=== PATIENT | female | born 1965 | race Caucasian/White ===

== ENCOUNTER → 2022-08-10 10:12 | Outpatient (CLI) | payer BC, SELFPAY ==
[2022-08-10 11:11] LABS: Basophils # 0.1 K/mm3 (0-0.2); Basophils % 1.4 % (0.1-2.0); Eosinophils # 0.2 K/mm3 (0.0-0.4); Eosinophils % 3.6 % (0.1-12.0); Hematocrit 50.2 % (37.0-47.0); Hemoglobin 15.5 g/dL (12.2-16.2); Lymphocytes # 1.6 K/mm3 (0.7-4.5); Lymphocytes % 31.7 % (10-50); Mean Corpuscular HGB Conc 30.9 g/dL (31.8-35.4); Mean Corpuscular Hemoglobin 30.2 pg (27.0-31.2); Mean Corpuscular Volume 97.6 fl (81-99); Monocytes # 0.3 K/mm3 (0.1-1.0); Monocytes % 5.2 % (1.7-9.3); Neutrophils # 2.9 K/mm3 (1.8-7.8); Platelet Count 303 K/mm3 (142-424); Red Blood Count 5.14 M/mm3 (4.20-5.40); Red Cell Distribution Width 13.9 % (11.5-17.5)
[2022-08-10 11:38] LABS: Alanine Aminotransferase 15 U/L (12-78); Albumin Level 4.6 g/dl (3.5-5.0); Albumin/Globulin Ratio 1.8 (1.1-1.8); Alkaline Phosphatase 55 U/L (38-126); Anion Gap 12.5 mEq/L (5-15); Aspartate Amino Transferase 22 U/L (14-36); Bilirubin,Total 0.8 mg/dl (0.2-1.3); Blood Urea Nitrogen 17 mg/dl (7-17); Calcium 9.2 mg/dl (8.4-10.2); Carbon Dioxide 27 mmol/L (22.0-30.0); Chloride 101 mmol/L (98-107); Estimated Glomerular Filt Rate 74 ml/min (>60); GFR (African American) 89 ML/MIN (>60); Globulin 2.5 g/dL (1.3-3.2); Glucose 92 mg/dl (74-100); Magnesium 2.4 mg/dl (1.6-2.3); Phosphorous 2.7 mg/dl (2.5-4.5); Potassium 4.5 mmoL/L (3.5-5.1); Sodium 136 mmol/L (136-145); Total Protein,Serum 7.1 g/dl (6.3-8.2); Uric Acid 4.2 mg/dl (2.5-6.2)
[2022-08-10 11:39] LABS: Creatine Kinase 41 U/L (30-135)
[2022-08-10 11:55] LABS: Free T4 (Free Thyroxine) 0.95 ng/dl (0.78-2.19)
[2022-08-10 11:57] LABS: 25-OH Vitamin D, Total 79.9 ng/mL (30-100)
[2022-08-10 12:08] LABS: Thyroid Stimulating Hormone 3.52 uIU/mL (0.465-4.68)
[2022-08-10 12:44] LABS: Vitamin B12 677 pg/mL (239-931)
[2022-08-10 12:49] LABS: Folate > 20.00 ng/mL
[2022-08-11 08:54] LABS: Estradiol <5.0 pg/mL (.); Progesterone 0.4 ng/mL (.); Triiodothyronine (T3) Free 2.2 pg/mL (2.0-4.4)
[2022-08-11 11:20] LABS: Homocyst(e)ine 8.2 umol/L (0.0-14.5)
[2022-08-14 04:08] LABS: C-Reactive Protein, Cardiac 0.84 mg/L (0.00-3.00)
[2022-08-14 19:15] LABS: Testosterone, Total, LC/MS 20.1 ng/dL (.); Testosterone,Free 1.9 pg/mL (0.0-4.2)
== END ==
PROVIDERS: PCP Family Medicine; Visit Provider Family Medicine
DX: E78.5 Hyperlipidemia, unspecified (principal); Z78.0 Asymptomatic menopausal state
CPT/HCPCS: 36415; 80053; 82306; 82550; 82607; 82626; 82670; 82746; 83036; 83090; 83735; 84100; 84144; 84270; 84402; 84403; 84439; 84443; 84481; 84550; 85025; 86140; 86141

== ENCOUNTER → 2023-05-02 09:30 | Outpatient (CLI) | payer BC, SELFPAY ==
[2023-05-02 18:17] LABS: Influenza A, PCR Not Detected (NotDetected); Influenza B, PCR Not Detected (NotDetected)
[2023-05-02 20:43] LABS: Coronavirus 19, PCR Detected (NotDetected)
== END ==
LOC: LAB.DROPOF 05-03 09:31
PROVIDERS: PCP Family Medicine; Visit Provider Nurse Practitioner
DX: U07.1 COVID-19 (principal); R51.9 Headache, unspecified; J02.9 Acute pharyngitis, unspecified; R05.9 Cough, unspecified
CPT/HCPCS: 87636

== ENCOUNTER 2023-08-07 10:34 | Outpatient (CLI) | payer BC, SELFPAY ==
--- NOTE | 2023-08-07 10:42 | XR_ITS ---
FINAL REPORT TECHNIQUE: Chest PA & Lateral CLINICAL HISTORY: covid COMPARISON: None FINDINGS: 2 views of the chest were performed. Cervical fusion hardware is noted. The heart size is normal. The mediastinum is within normal limits. There is no acute cardiopulmonary process. There are no pleural effusions. There is no pneumothorax. The bony thorax appears intact. There is mild thoracic scoliosis convex to the right. IMPRESSION: No acute cardiopulmonary process. Reviewed, Interpreted and Dictated by Farhan Palm MD Transcribed by Marilyn Niño Authenticated and [facility]
== END 2023-08-07 23:59 ==
LOC: RAD 10:34
PROVIDERS: PCP Family Medicine; Visit Provider Family Medicine
DX: U07.1 COVID-19 (principal)
CPT/HCPCS: 71046

== ENCOUNTER 2024-09-21 10:49 | Outpatient (CLI) | payer BC, SELFPAY ==
--- NOTE | 2024-09-21 10:51 | XR_ITS ---
FINAL REPORT CLINICAL HISTORY: lt sided posterior pain, nki COMPARISON: 08/07/2023 FINDINGS: 2 views of the chest were obtained . The heart is normal in size. The mediastinum is within normal limits. The lungs are clear. There is no pneumothorax. Osseous structures are unremarkable. IMPRESSION: No acute cardiopulmonary process. Reviewed, Interpreted and Dictated by Farhan Palm MD Transcribed by Svetlana Morton Authenticated and [facility]
--- OUTSIDE RECORDS SUMMARY | 2024-09-21 10:51 | XMS_ITS | Continuity of Care Document ---
Author Organization [facility] PHYSICAL THERAPY / [facility] THERAPY [place] Address [address] [place] [address] Care Team Providers Care Regulator Tester Name Role Phone MARIKA WALSH Primary Care Provider JOSSY OSHEA Scada Technician Assessment Encounter Date Assessment Date Assessment LastModified by Organization Details LastModified Time 08/25/2024 08/25/2024 Patient was able to tolerate today's treatment relatively well. Notable improvements in both sinus pressure as well as headache symptoms following significant soft tissue mobilization into splenius capitis, SCM insertion, suboccipitals, and temporalis. Patient was able to complete today's exercises well with no significant tactile cueing for appropriate facilitation of upper trap and parascapular musculature. Reviewed lateral fencing exercise as patient has been completing exercises incorrectly at home. She is able to complete this exercise with independence today and appropriate fatigue within a 15 rep range sequence. Overall this physical therapist is able to note appropriate muscular fatigue and neuromuscular sequencing with today's given exercises. Light resistance used as to assist with facilitation and feedback with appropriate exercises. Patient continues to have most difficulty with chest high row. Plan for patient to follow-up with Dr. Corral next week for secondary injection prior to ablation, discussed with patient moving next week's appointment as to allow decreased driving to and from [place] and allow for appropriate longevity and decreased irritability following next week's injection. Plan for patient to follow-up with PT next Saturday for continued progressions of clinical rehab programming, neuromuscular control into right parascapular musculature, and appropriate endurance and facilitation of upper trap. [email or web address] Not available 08/25/2024 19:22:14 Plan of Treatment Reminders Order Date Submit Date Provider Last Modified By Organization Details Last Modified Time Details Appointments [facility] 20 2024 11:20A M GIORGI CORRAL MD Not available Not available Not available RECHECK 2024 01:00P M LISS DICKERSON PT Not available Not available Not available SINGLE PROB DAK 2024 11:20A M JOSSY OSHEA MD Not available Not available Not available RECHECK 2024 02:00P M LISS DICKERSON PT Not available Not available Not available RECHECK 2024 01:15P M GIORGI CORRAL MD Not available Not available Not available Lab None recorded . Referral None recorded . Procedures None recorded . Surgeries None recorded . Imaging None recorded . Medication Orders None recorded . Patient TargetsNo targets recorded. Patient InstructionsNo instructions recorded. Reason for Referral None Reported. Problems Name Problem SNOMED Code Status Onset Date Resolution Date Notes Provider Name and Address Organization Details Recorded Time Scapulalgia 65902536 Active 2024 LISS DICKERSON, PT, DPT [address] [place], [address] , [facility] 19:28:03 Cervical radiculopathy 11329359 Active 2024 LISS DICKERSON, PT, DPT [address] [place], [address] , [facility] 19:28:05 Abnormal posture 21408883 Active 2024 LISS DICKERSON PT, DPT [address] [place], [address] , [facility] 19:28:07 Muscular incoordination 60410554 Active 2024 LISS DICKERSON PT, DPT [address] [place], [address] , [facility] 19:28:08 Problem Notes None recorded. Procedures Surgical History Date Name Laterality Status Provider Name and Address Organization Details Recorded Time 09/02/19 PT Manual Therapy completed LISS DICKERSON, PT, DPT [address] [place], [address], [facility] 09/08/2024 21:53:03 08/26/19 25 PT/OT Neuromuscular Re-Education completed LISS DICKERSON, PT, DPT [address] [place], [address], [facility] 08/25/2024 19:19:04 08/26/19 25 PT Manual Therapy completed LISS DICKERSON, PT, DPT [address] [place], [address], [facility] 08/25/2024 19:19:00 08/20/19 25 PT/OT Neuromuscular Re-Education completed LISS DICKERSON, PT, DPT [address] [place], [address], [facility] 08/19/2024 12:17:57 08/20/19 25 PT Manual Therapy completed LISS DICKERSON, PT, DPT [address] [place], [address], [facility] 08/19/2024 12:17:57 08/13/19 25 PT/OT Neuromuscular Re-Education completed LISS DICKERSON, PT, DPT [address] [place], [address], [facility] 08/21/2024 12:32:25 08/13/19 25 PT Therapeutic Exercise completed LISS DICKERSON, PT, DPT [address] [place], [address], [facility] 08/21/2024 12:32:34 08/12/19 25 Cervical MBB 2 level - Theresa completed GIORGI CORRAL MD [address] [place], [address], [facility] 08/11/2024 14:52:52 07/28/19 25 PT/OT Neuromuscular Re-Education completed LISS DICKERSON, PT, DPT [address] [place], [address], [facility] 07/27/2024 12:17:47 07/28/19 25 PT Manual Therapy completed LISS DICKERSON, PT, DPT [address] [place], [address], [facility] 07/27/2024 12:18:12 07/24/19 25 Self Retirement Management - PT completed LISS DICKERSON, PT, DPT [address] [place], [address], [facility] 07/27/2024 09:48:20 07/24/19 25 PT/OT Neuromuscular Re-Education completed LISS DICKERSON, PT, DPT [address] [place], [address], [facility] 07/27/2024 09:51:11 07/24/19 25 PT Therapeutic Exercise completed LISS DICKERSON, PT, DPT [address] [place], [address], [facility] 07/27/2024 09:51:10 07/16/19 25 PT/OT Neuromuscular Re-Education completed LISS DICKERSON, PT, DPT [address] [place], [address], [facility] 07/24/2024 11:57:59 07/16/19 25 PT Manual Therapy completed LISS DICKERSON, PT, DPT [address] [place], [address], [facility] 07/24/2024 11:57:39 07/16/19 25 PT Therapeutic Exercise completed LISS DICKERSON, PT, DPT [address] [place], [address], [facility] 07/24/2024 11:57:49 07/08/19 25 PT/OT Neuromuscular Re-Education completed LISS DICKERSON, PT, DPT [address] [place], [address], [facility] 07/08/2024 21:10:29 07/08/19 25 PT Manual Therapy completed LISS DICKERSON, PT, DPT [address] [place], [address], [facility] 07/08/2024 21:10:24 07/08/19 25 PT Therapeutic Exercise completed LISS DICKERSON, PT, DPT [address] [place], [address], [facility] 07/08/2024 21:00:47 06/29/19 25 PT/OT Neuromuscular Re-Education completed LISS DICKERSON, PT, DPT [address] [place], [address], [facility] 07/01/2024 20:27:28 06/29/19 25 PT Manual Therapy completed LISS DICKERSON, PT, DPT [address] [place], [address], [facility] 07/01/2024 20:27:22 06/29/19 25 PT Therapeutic Exercise completed LISS DICKERSON, PT, DPT [address] [place], [address], [facility] 07/01/2024 20:27:36 06/25/19 25 PT Evaluation - Moderate Complexity completed LISS DICKERSON PT, DPT [address] [place], [address], [facility] 06/25/2024 19:23:06 06/25/19 25 Self Retirement Management - PT completed LISS DICKERSON, PT, DPT [address] [place], [address], [facility] 06/25/2024 19:26:55 06/25/19 25 PT/OT Neuromuscular Re-Education completed LISS DICKERSON, PT, DPT [address] [place], [address], [facility] 06/25/2024 19:23:45 06/25/19 25 PT Therapeutic Exercise completed LISS DICKERSON, PT, DPT [address] [place], [address], [facility] 06/25/2024 19:24:29 06/04/19 25 Trigger Point Injections - Theresa completed GIORGI CORRAL MD [address] [place], [address], [facility] 06/04/2024 13:44:29 05/20/19 24 Destruction Premalignant Lesion(s) completed Georgia De Jesus [facility] 05/20/2023 15:13:46 Imaging Results None recorded. Procedure Notes None recorded. Medical Equipment None Reported. Allergies No known drug allergies Medications Name Sig Start Date Stop Date Status Note LastModified by Organization Details LastModified Time amoxicilli n 500 mg capsule 06/04 completed Not Available Not Available Not Available prednisone 10 mg tablet 05/20 completed Not Available Not Available Not Available azithromyc in 250 mg tablet 07/14 completed Not Available Not Available Not Available liothyroni ne 25 mcg tablet active Not Available Not Available Not Available fluconazol e 200 mg tablet 05/20 completed Not Available Not Available Not Available ondansetro n HCl 4 mg tablet 06/04 completed Not Available Not Available Not Available prednisone 20 mg tablet active Not Available Not Available Not Available clonazepam 0.5 mg tablet 06/04 completed Not Available Not Available Not Available clonazepam 1 mg tablet every night for sleep active Not Available Not Available No t Available penicillin V potassium 500 mg tablet TAKE 1 TABLET BY MOUTH FOUR TIMES DAILY UNTIL GONE active Not Available Not Available No t Available tretinoin 0.05 % topical cream active Not Available Not Available Not Available liothyroni ne 5 mcg tablet active Not Available Not Available Not Available triamcinol one acetonide 0.1 % topical cream active Not Available Not Available Not Available acyclovir 800 mg tablet 06/04 completed Not Available Not Available Not Available Aleve 220 mg tablet Take 1 tablet every 12 hours by oral route as needed. active Not Available Not Available No t Available meloxicam 7.5 mg tablet 06/04 completed Not Available Not Available Not Available amoxicilli n 875 mg tablet 05/20 completed Not Available Not Available Not Available amitriptyl ine 25 mg tablet 07/14 completed Not Available Not Available Not Available temazepam 30 mg capsule TAKE 1 CAPSULE BY MOUTH EVERY DAY AT BEDTIME NEEDED FOR SLEEP active Not Available Not Available No t Available montelukas t 10 mg tablet 06/04 completed Not Available Not Available Not Available acyclovir 200 mg capsule 07/14 completed Not Available Not Available Not Available scopolamin e 1 mg over 3 days transderma l patch active Not Available Not Available Not Available testostero ne 1 % (25 mg/2.5 gram) transderma l gel packet Apply 1 packet every day by transder mal route. active Not Available Not Available No t Available bromphenir amine-pseu doephedrin e-DM 2 mg-30 mg-10 mg/5 mL oral syrup 06/04 completed Not Available Not Available Not Available cefdinir 300 mg capsule 06/04 completed Not Available Not Available Not Available fluticason e propionate 50 mcg/actuat ion nasal spray,susp ension 07/14 completed Not Available Not Available Not Available amoxicilli n 875 mg-potassi um clavulanat e 125 mg tablet active Not taking Not Available Not Available Not Available estradiol 0.025 mg/24 hr semiweekly transderma l patch 07/14 completed Not Available Not Available Not Available moxifloxac in 0.5 % eye drops 05/20 completed Not Available Not Available Not Available estradiol active Not Available Not Cha ilable Not Available progestero ne active Not Available Not Available Not Available multivitam in active Not Available Not Available Not Available Havrix (PF) 1,440 SRINIVASAN unit/mL intramuscu lar syringe 07/14 completed Not Available Not Available Not Available bimatopros t 0.03 % drops with applicator , eyelash base APPLY 1 APPLICAT ION DIRECTED AT BEDTIME active Not Available Not Available No t Available Stahist AD 25 mg-60 mg tablet TAKE 1 TABLET BY MOUTH NEEDED EVERY 8 HOURS FOR 7 DAYS active Not Available Not Available No t Available mirabegron ER 50 mg tablet,ext ended release 24 hr active Not Available Not Available Not Available PreviDent 5000 Booster Plus 1.1 % dental paste 06/04 completed Not Available Not Available Not Available Shingrix (PF) 50 mcg/0.5 mL intramuscu lar suspension , kit 07/14 completed Not Available Not Available Not Available Afluria Qd 2019-20 (36 mos up)(PF)60 mcg (15 mcg x4)/0.5 mL IM syringe 07/14 completed Not Available Not Available Not Available Paxlovid 300 mg (150 mg x 2)-100 mg tablets in a dose pack TAKE 3 TABLETS BY MOUTH 12 HOURS APART FOR 5 DAYS 06/04 completed Not Available Not Available Not Available FreeStAccertify Shilpi 3 Sensor device APPLY AND USE DIRECTED 06/04 completed Not Available Not Available Not Available Vitals None Recorded Social History Question Answer Notes LastModified by [employer] ion Details LastModified Time Tobacco Smoking Status Former Smoker quit 15 yrs ago [place] LizaADILIA ward [facility] 05/20/2023 15:07:15 What Was The Date Of Your Most Recent Tobacco Screening? 07/23/2024 [email or web address] Information not available 07/23/2024 Sex: Female Functional Status Question Answer Note LastModified by Organizat ion Details LastModified Time What is your level of alcohol consumption? Occasional Information not available 05/20/2023 Mental Status None recorded. Family History Nothing Reported. Medical History Condition Response Coronary Artery Disease N Gout N Kidney Stones N Blood Transfusion N Hernia N Emphysema N Head Trauma/Injury N Colon/Rectal Disorders N Sexually Transmitted Disease N Glaucoma N COPD N Lung Disease N Depression N Pneumonia N Pacemaker N Measles N Attempted Suicide N Varicose Veins N Anxiety Disorder N Muscle, Joint, or Bone Problems N Hearing Loss N Arthritis N Serious Illness or Injuries N Blood Clot N Cancer N Stroke N Leg or Foot Ulcers N Radiation Therapy N Blood Thinners N High Cholesterol N Neurologic Disorder N Liver Disease N Organ Transplant N Rheumatoid Arthritis N Fibromyalgia N Headaches Y Endocrine Disorder N Kidney Disease N Allergies/Hayfever Y Heart Problems N Carpel Tunnel N Skin Problems N Anemia N Meningitis N Heart Attack ([place]) N Ulcers N Diabetes N Rheumatic Fever N Bleeding Disorder N Seizures/Epilepsy N Tuberculosis N AIDS/HIV N Asthma N Peripheral Vascular Disease N Epilepsy/Seizures N Basal Cell Carcinoma Y Reflux/GERD N Sleep Apnea N Thyroid Disorder N Hepatitis N Heart Disease N Neuropathy N Pulmonary Embolism N Hypertension N Osteoporosis N Gynecological HistoryNo gynecological history recorded. Obstetrics History GPAL:G 0 P 0 0 0 0 Past Encounters Encounter ID Performer Location Encounter Start Date Encounter Closed Date Diagnosis/Indication Diagnosis SNOMED-CT Code Diagnosis ICD10 Code Diagnosis Note [id number] LISS DICKERSON, PT, DPT PHYSICAL THERAPY / [facility]APY [facility] [address] [place] [address] 07/27/2024 10:53:22 07/30/2024 08:54:17 Cervical radiculopathy 35373148 M54.12 Abnormal posture 0800914 2 R29.3 Scapulalgia 38917888 M25 .511 Muscular incoordination 23097109 R27.8 [id number] GIORGI CORRAL MD [facility] [address] [facility], [address] [place] [address] 08/11/2024 14:14:42 08/11/2024 16:20:45 Cervical spondylosis 394927928 M47.812 [id number] LISS DICKERSON, PT, DPT PHYSICAL THERAPY / HAND THERAPY [facility] [address] [place] [address] 08/12/2024 13:52:39 08/22/2024 04:31:33 Cervical radiculopathy 69218875 M54.12 Abnormal posture 6743886 2 R29.3 Scapulalgia 17189076 M25 .511 Muscular incoordination 16337589 R27.8 [id number] LISS DICKERSON PT, DPT PHYSICAL THERAPY / HAND THERAPY [facility] [address] [place] [address] 08/19/2024 11:56:29 08/29/2024 04:04:13 Cervical radiculopathy 54677801 M54.12 Abnormal posture 2207445 2 R29.3 Scapulalgia 99659023 M25 .511 Muscular incoordination 10013546 R27.8 [id number] LISS DICKERSON PT, DPT PHYSICAL THERAPY / HAND THERAPY [place] [address] [place] [address] 08/25/2024 13:57:14 08/26/2024 04:27:09 Cervical radiculopathy 57491048 M54.12 Abnormal posture 7839526 2 R29.3 Scapulalgia 13460071 M25 .511 Muscular incoordination 22844848 R27.8 Health Concerns Section Related Observation LastModified by Organization Detai ls LastModified Time None Recorded Concern Status LastModified by Organization Details LastModified Time None Recorded Payers Encounter Date Sequence Insurance Name Policy Number Policy Jung Covered Member ID Jung Member ID Guarantor Name 08/25/2024 1 [place] [id number] Bentley Phipps [id number] Valeri Richsuhas Notes Date Note Type Note Provider Name and Address Organization Details Recorded Time 08/25/2024 text/html Time in: 2:05 PMTime out: 3:00 PM Patient reports last night was the first night in a while in which she is woken with headaches severe enough to take Aleve. She felt in the last few weeks following injection she has had relatively reduced symptoms and has noted overall improvement in intensity of symptoms as well as frequency of more severe headache and cervical symptoms. Patient reports she could attribute more significant neck pain to reading for approximately 2 hours last evening with propping head up in bed. Patient has had good success with updated exercises with mild fatigue and feeling of good muscular activation through upper trap and parascapular musculature with this set of exercises. LISS DICKERSON, PT, DPT [address] [place], [address], [facility] 08/25/2024 19:22:42 OBGyn Episode No OBEpisode recorded.
--- OUTSIDE RECORDS SUMMARY | 2024-09-21 10:51 | XMS_ITS | Continuity of Care Document ---
Author Organization [facility] Address [address] [place] [address] Care Team Providers Care Consumer Experience Consultant Name Role Phone NICO MARIKA Primary Care Provider JOSSY OSHEA University Lecturer Assessment Encounter Date Assessment Date Assessment LastModified by Organization Details LastModified Time 08/12/2024 08/12/2024 Continued length y discussion regarding appropriate plan of care for patient with patient understanding of phases of physical therapy with importance of restoring neuromuscular control into posture and about the left scapula prior to progressing with resistance and strict strengthening activities. Progressive strength will be achieved with improved recruitment of parascapular musculature but importance is for patient to have appropriate proprioceptive awareness of left scapula. Discussed with patient option for Neuralign NMES device for more appropriate and facilitated strengthening activities secondary to patient's limitations of lengthy travel to attend physical therapy sessions and chronic compensatory strategies. Revised patient's HEP, plan for PT to discuss with Dr. Corral Neuralign orders for continued intervention, plan for patient to follow-up with PT next week for continued neuromuscular facilitation for scapular kinematics and more appropriate recruitment of upper trap with parascapular musculature. Not available 08/21/2024 12:38:47 Plan of Treatment Reminders Order Date Submit Date Provider Last Modified By Organization Details Last Modified Time Details Appointments [facility] 20 2024 11:20A M GIORGI CORRAL MD Not available Not available Not available RECHECK 2024 01:00P Sheree DICKERSON PT Not available Not available Not available SINGLE PROB DAK 2024 11:20A Sheree OSHEA MD Not available Not available Not [...] and Address Organization Details Recorded Time Scapulalgia 65823902 Active 2024 LISS DICKERSON, PT, DPT [address] [place], [address] , [facility] 19:28:03 Cervical radiculopathy 35693878 Active 2024 LISS DICKERSON, PT, DPT [address] [place], [address] , [facility] 19:28:05 Abnormal posture 61308289 Active 2024 LISS DICKERSON, PT, DPT [address] [place], [address] , [facility] 19:28:07 Muscular incoordination 84244521 Active 2024 LISS DICKERSON, PT, DPT [address] [place], [address] , [facility] 19:28:08 Problem Notes None recorded. Procedures Surgical History Date Name Laterality Status Provider Name and Address Organization Details Recorded Time 09/02/19 25 PT Manual Therapy completed LISS DICKERSON, PT, DPT [address] [place], [address], [facility] 09/08/2024 21:53:03 08/26/19 25 PT/OT Neuromuscular Re-Education completed LISS DICKERSON, PT, DPT [address] [place], [address], [facility] 08/25/2024 19:19:04 08/26/19 25 PT Manual Therapy completed LISS DICKERSON, PT, DPT [address] [place], [address], [facility] 08/25/2024 19:19:00 08/20/19 25 PT/OT Neuromuscular Re-Education completed LISS DICKERSON, PT, DPT [address] [place], [address], [facility] 08/19/2024 12:17:57 08/20/19 25 PT Manual Therapy completed LISS DICKERSON, PT, DPT [address] [place], [address], [facility] 08/19/2024 12:17:57 08/13/19 25 PT/OT Neuromuscular Re-Education completed LISS DICKERSON, PT, DPT [address] [place], [address], [facility] 08/21/2024 12:32:25 08/13/19 25 PT Therapeutic Exercise completed LISS DICKERSON, PT, DPT [address] [place], [address], [facility] 08/21/2024 12:32:34 08/12/19 25 Cervical MBB 2 level - Theresa completed GIORGI CORRAL MD [address] [place], [address], [facility] 08/11/2024 14:52:52 07/28/19 25 PT/OT Neuromuscular Re-Education completed LISS DICKERSON, PT, DPT [address] [place], [address], [facility] 07/27/2024 12:17:47 07/28/19 25 PT Manual Therapy completed LISS DICKERSON, PT, DPT [address] [place], [address], [facility] 07/27/2024 12:18:12 07/24/19 25 Self Jail Management - PT completed LISS DICKERSON, PT, DPT [address] [place], [address], [facility] 07/27/2024 09:48:20 07/24/19 25 PT/OT Neuromuscular Re-Education completed LISS DICKERSON, PT, DPT [address] [place], [address], [facility] 07/27/2024 09:51:11 07/24/19 25 PT Therapeutic Exercise completed LISS DICKERSON, PT, DPT [address] [place], [address], [facility] 07/27/2024 09:51:10 07/16/19 25 PT/OT Neuromuscular Re-Education completed LISS DICKERSON, PT, DPT [address] [place], [address], [facility] 07/24/2024 11:57:59 07/16/19 25 PT Manual Therapy completed LISS DICKERSON, PT, DPT [address] [place], [address], [facility] 07/24/2024 11:57:39 07/16/19 25 PT Therapeutic Exercise completed LISS DICKERSON, PT, DPT [address] [place], [address], [facility] 07/24/2024 11:57:49 07/08/19 25 PT/OT Neuromuscular Re-Education completed LISS DICKERSON, PT, DPT [address] [place], [address], [facility] 07/08/2024 21:10:29 07/08/19 25 PT Manual Therapy completed LISS DICKERSON, PT, DPT [address] [place], [address], [facility] 07/08/2024 21:10:24 07/08/19 25 PT Therapeutic Exercise completed LISS DICKERSON, PT, DPT [address] [place], [address], [facility] 07/08/2024 21:00:47 06/29/19 25 PT/OT Neuromuscular Re-Education completed LISS DICKERSON, PT, DPT [address] [place], [address], [facility] 07/01/2024 20:27:28 06/29/19 25 PT Manual Therapy completed LISS DICKERSON, PT, DPT [address] [place], [address], [facility] 07/01/2024 20:27:22 06/29/19 25 PT Therapeutic Exercise completed LISS DICKERSON, PT, DPT [address] [place], [address], [facility] 07/01/2024 20:27:36 06/25/19 25 PT Evaluation - Moderate Complexity completed LISS DICKERSON PT, DPT [address] [place], [address], [facility] 06/25/2024 19:23:06 06/25/19 25 Self Jail Management - PT completed LISS DICKERSON, PT, DPT [address] [place], [address], [facility] 06/25/2024 19:26:55 06/25/19 25 PT/OT Neuromuscular Re-Education completed LISS DICKERSON, PT, DPT [address] [place], [address], [facility] 06/25/2024 19:23:45 06/25/19 25 PT Therapeutic Exercise completed LISS DICKERSON PT, DPT [address] [place], [address], [facility] 06/25/2024 19:24:29 06/04/19 25 Trigger Point Injections - Theresa completed GIORGI CORRAL MD [address] [place], [address], [facility] 06/04/2024 13:44:29 05/20/19 24 Destruction Premalignant Lesion(s) completed Georgia De Jesus [facility] 05/20/2023 15:13:46 Imaging Results None recorded. Procedure [...] Available Not Available Not Available Afluria Qd 2018- (36 mos up)(PF)60 mcg (15 mcg x4)/0.5 mL IM syringe 07/14 completed Not Available Not Available Not Available Paxlovid 300 mg (150 mg x 2)-100 mg tablets in a dose pack TAKE 3 TABLETS BY MOUTH 12 HOURS APART FOR 5 DAYS 06/04 completed Not Available Not Available Not Available [employer] Shilpi 3 Sensor device APPLY AND USE DIRECTED 06/04 completed Not Available Not Available Not Available Vitals None Recorded Social History Question Answer Notes LastModified by Organizat ion Details LastModified Time Tobacco Smoking Status Former Smoker quit 15 yrs ago Georgia De Jesus anahy [facility] 05/20/2023 15:07:15 What Was The Date Of Your Most Recent Tobacco Screening? 07/23/2024 elie Information not available 07/23/2024 Sex: Female Functional Status Question Answer Note LastModified by Organizat ion Details LastModified Time What is your level of alcohol consumption? Occasional [email or web address] Information not available 05/20/2023 Mental Status None recorded. Family History Nothing Reported. Medical History Condition Response Coronary Artery Disease N Gout N Kidney Stones N Blood Transfusion N Hernia N Emphysema N Head Trauma/Injury N Colon/Rectal Disorders N Sexually Transmitted Disease N Lung Disease N Depression N COPD N Glaucoma N Pneumonia N Pacemaker N Measles N [...] N Anemia N Meningitis N Heart Attack ([place]) N Ulcers N Diabetes N Rheumatic Fever [...] SNOMED-CT Code Diagnosis ICD10 Code Diagnosis Note [id number] LISS DICKERSON, PT, DPT [facility] [address] [place] [address] 07/15/2024 12:50:03 07/25/2024 06:38:00 Cervical radiculopathy 11471175 M54.12 Abnormal posture 3590672 2 R29.3 Scapulalgia 51892916 M25 .511 Muscular incoordination 40809742 R27.8 [id number] LISS DICKERSON, PT, DPT [facility] [address] [place] [address] 07/23/2024 12:49:06 07/28/2024 04:10:24 Cervical radiculopathy 13236204 M54.12 Abnormal posture 9843415 2 R29.3 Scapulalgia 49211408 M25 .511 Muscular incoordination 44350912 R27.8 [id number] GIORGI CORRAL MD [facility] [address] [place] [address] 07/23/2024 14:02:43 07/24/2024 10:02:32 Degeneration of cervical intervertebral disc 87624574 M50.30 Cervical spondylosis 387 711909 M47.812 Scapulalgia 08948027 M25 .519 Myofascial pain syndrome of neck 909005969 M54.2 [id number] LISS DICKERSON, PT, DPT PHYSICAL THERAPY / HAND THERAPY [facility] [address] [place] [address] 07/27/2024 10:53:22 07/30/2024 08:54:17 Cervical radiculopathy 99158409 M54.12 Abnormal posture 5845276 2 R29.3 Scapulalgia 36249712 M25 .511 Muscular incoordination 54820739 R27.8 [id number] GIORGI CORRAL MD [facility] PROFESSIO NAL CHARGES [address] [facility], [address] [place] [address] 08/11/2024 14:14:42 08/11/2024 16:20:45 Cervical spondylosis 092523984 M47.812 [id number] LISS DICKERSON, PT, DPT PHYSICAL THERAPY / HAND THERAPY [facility] [address] [place] [address] 08/12/2024 13:52:39 08/22/2024 04:31:33 Cervical radiculopathy 17323344 M54.12 Abnormal posture 0313904 2 R29.3 Scapulalgia 78891460 M25 .511 Muscular incoordination 63449830 R27.8 Health Concerns Section Related Observation LastModified by Organization Detai ls LastModified Time None Recorded Concern Status LastModified by Organization Details LastModified Time None Recorded Payers Encounter Date Sequence Insurance Name Policy Number Policy Jung Covered Member ID Jung Member ID Guarantor Name 08/12/2024 1 [place] [id number] Bentley Phipps [id number] Valeri Phipps Notes Date Note Type Note Provider Name and Address Organization Details Recorded Time 08/12/2024 text/html Time in: 2:03pmT yamileth out: 3:08pm Patient reports significant improvement in cervical symptoms following medial branch nerve blocks from C3-C5 by Dr. Corral 1 day following. Patient reports that she has not had headaches since procedure and she did a significant amount of driving in the last 2 days which is typically symptomatic for patient. Patient is inquiring about importance of physical therapy and next steps as patient is pain-free at this stage and what this means for plan of care. LISS DICKERSON, PT, DPT [address] [place], [address], [facility] 08/21/2024 12:38:56 08/19/2024 text/html Time in: 12:09pmTime out: 1:10pm Patient reports mild soreness into most additional location of Neuralign electrode following last sessions exercise and utilization of NMES unit. Patient reports return of headaches approximately 48 hours following previous cervical injections. She reports no headaches have yet to be symptomatic enough for patient to require medication. She reports no headaches with driving to today's appointment. LISS DICKERSON, PT, DPT [address] [place], [address], [facility] 08/28/2024 10:46:20 OBGyn Episode No OBEpisode recorded.
--- OUTSIDE RECORDS SUMMARY | 2024-09-21 10:51 | XMS_ITS | Continuity of Care Document ---
Author Organization [facility], PAIN MEDICINE Address [address] [place] [address] Care Team Providers Care Puppet Master Name Role Phone MARIKA WALSH Primary Care Provider JOSSY OSHEA Pattern Storage Clerk Assessment Encounter Date Assessment Date Assessment LastModified by Organization Details LastModified Time 07/23/2024 07/23/2024 This is a 58-year-old female seen today for follow-up evaluation of cervical spine pain with occipital headaches as well as scapular dyskinesis. She continues to work with PT on proper scapular function which has included dry needle therapy. She has noticed some improvement with this therapy. PMH: PSHx: 1. MRI cervical spine 04/15/2024 demonstrates previous C6-7 ACDF. L>R C7-T1 foraminal narrowing. C5-6 retrolisthesis. 2. X-ray cervical spine 04/15/2024 demonstrates previous C6-7 ACDF with slight C3-4 and C4-5 anterolisthesis with no instability apparent 3. CT cervical spine 04/15/2024 demonstrates solid osseous fusion. The above image findings were discussed with the patient. Previous injection therapy has included: BLANCA, RFA prior to surgery Patient has participated in a physician directed home exercise program for at least 6 weeks in the last 6 months Presentation is consistent with scapular dyskinesis and cervical spondylosis. I recommend: 1. Continue PT 2. Right C3-5 MBB with progression to RFA if diagnostic I had an in-depth discussion with the patient regarding the risks of the procedure including bleeding, infection, damage to surrounding structures, paralysis and even . We discussed the potential adverse effects of corticosteroid injection including flushing of the face, lipodystrophy, skin discoloration, elevated blood glucose, increased blood pressure. Risks of frequent steroid administration include weight gain, hormonal changes, mood changes, osteoporosis. External records were reviewed and discussed as above, including imaging, clinical notes, and relevant labs. [email or web address] Not available 07/23/2024 14:44:21 Plan of Treatment Reminders Order Date Submit Date Provider Last Modified By Organization Details Last Modified Time Details Appointments [facility]- 20 2024 11:20A Sheree CORRAL MD Not available Not available Not available RECHECK 2024 01:00P M LISS DICKERSON PT Not available Not available Not available SINGLE PROB DAK 2024 11:20A M JOSSY OSHEA MD Not available Not available Not available RECHECK 2024 02:00P Sheree DICKERSON PT Not available Not available Not available RECHECK 2024 01:15P Sheree CORRAL MD Not available Not available Not available Lab None recorded. Referral None recorded. Procedures medial branch block, cervical (PROC) 2024 025 [email or web address] [facility] Professional Charges, [address] [facility], [address], [address], 08/10/2024 15:50:38 Surgeries None recorded. Imaging None recorded. Medication Orders None recorded. Patient TargetsNo targets recorded. Patient InstructionsNo instructions recorded. Reason for Referral None Reported. Problems Name Problem SNOMED Code Status Onset Date Resolution Date Notes Provider Name and Address Organization Details Recorded Time Scapulalgia 21052159 Active 2024 LISS DICKERSON, PT, DPT [address] [place] [address], [phone] , [facility] 19:28:03 Cervical radiculopathy 30589745 Active 2024 LISS DICKERSON PT, DPT [address] [place] [address], [address] , [facility] 19:28:05 Abnormal posture 86588097 Active 2024 LISS DICKERSON PT, DPT [address] [place] [address], [address] , [facility] 19:28:07 Muscular incoordination 09160922 Active 2024 LISS DICKERSON, PT, DPT [address] [place], [address] , [facility] 19:28:08 Problem Notes None recorded. Procedures Surgical History Date Name Laterality Status Provider Name and Address Organization Details Recorded Time 09/02/19 25 PT Manual Therapy completed LISS DICKERSON, PT, DPT [address] [place], [address], [facility] 09/08/2024 21:53:03 08/26/19 25 PT/OT Neuromuscular Re-Education completed LISS DICKERSON PT, DPT [address] [place], [address], [facility] 08/25/2024 19:19:04 08/26/19 25 PT Manual Therapy completed LISS DICKERSON, PT, DPT [address] [place], [address], [facility] 08/25/2024 19:19:00 08/20/19 25 PT/OT Neuromuscular Re-Education completed ILSS DICKERSON, PT, DPT [address] [place], [address], [facility] 08/19/2024 12:17:57 08/20/19 25 PT Manual Therapy completed LISS DICKERSON, PT, DPT [address] [place], [address], [facility] 08/19/2024 12:17:57 08/13/19 25 PT/OT Neuromuscular Re-Education completed LISS DICKERSON, PT, DPT [address] [place], [address], [facility] 08/21/2024 12:32:25 08/13/19 25 PT Therapeutic Exercise completed LISS DICKERSON, PT, DPT [address] [place], [address], [facility] 08/21/2024 12:32:34 08/12/19 25 Cervical MBB 2 level - Theresa completed GIORGI CORRAL MD [address] [place], [address], [facility] 08/11/2024 14:52:52 07/28/19 25 PT/OT Neuromuscular Re-Education completed LISS DICKERSON, PT, DPT [address] [place], [address], [facility] 07/27/2024 12:17:47 07/28/19 25 PT Manual Therapy completed LISS DICKERSON, PT, DPT [address] [place], [address], [facility] 07/27/2024 12:18:12 07/24/19 25 Self Retirement Management - PT completed LISS DICKERSON, PT, DPT [address] [place], [address], [facility] 07/27/2024 09:48:20 07/24/19 25 PT/OT Neuromuscular Re-Education completed LISS DICKERSON, PT, DPT [address] [place], [address], [facility] 07/27/2024 09:51:11 07/24/19 25 PT Therapeutic Exercise completed LISS DICKERSON PT, DPT [address] [place], [address], [facility] 07/27/2024 09:51:10 07/16/19 25 PT/OT Neuromuscular Re-Education completed LISS DICKERSON, PT, DPT [address] [place], [address], [facility] 07/24/2024 11:57:59 07/16/19 25 PT Manual Therapy completed LISS DICKERSON, PT, DPT [address] [place], [address], [facility] 07/24/2024 11:57:39 07/16/19 25 PT Therapeutic Exercise completed LISS DICKERSON, PT, DPT [address] [place], [address], [facility] 07/24/2024 11:57:49 07/08/19 25 PT/OT Neuromuscular Re-Education completed LISS DICKERSON, PT, DPT [address] [place], [address], [facility] 07/08/2024 21:10:29 07/08/19 25 PT Manual Therapy completed LISS DICKERSON, PT, DPT [address] [place], [address], [facility] 07/08/2024 21:10:24 07/08/19 25 PT Therapeutic Exercise completed LISS DICKERSON, PT, DPT [address] [place], [address], [facility] 07/08/2024 21:00:47 06/29/19 25 PT/OT Neuromuscular Re-Education completed LISS DICKERSON, PT, DPT [address] [place], [address], [facility] 07/01/2024 20:27:28 06/29/19 25 PT Manual Therapy completed LISS DICKERSON, PT, DPT [address] [place], [address], [facility] 07/01/2024 20:27:22 06/29/19 25 PT Therapeutic Exercise completed LISS DICKERSON, PT, DPT [address] [place], [address], [facility] 07/01/2024 20:27:36 06/25/19 25 PT Evaluation - Moderate Complexity completed LISS DICKERSON, PT, DPT [address] [place], [address], [facility] 06/25/2024 19:23:06 06/25/19 25 Self Retirement Management - PT completed LISS DICKERSON, PT, DPT [address] [place], [address], [facility] 06/25/2024 19:26:55 06/25/19 25 PT/OT Neuromuscular Re-Education completed LISS DICKERSON, PT, DPT [address] [place], [address], [facility] 06/25/2024 19:23:45 06/25/19 25 PT Therapeutic Exercise completed LISS DICKERSON, PT, DPT [address] [place], [address], [facility] 06/25/2024 19:24:29 06/04/19 25 Trigger Point Injections - Theresa completed GIORGI CORRAL MD [address] [place], [address], [facility] 06/04/2024 13:44:29 05/20/19 24 Destruction Premalignant Lesion(s) completed [facility] 05/20/2023 15:13:46 Imaging Results None [...] completed Not Available Not Available Not Available [employer] Shilpi 3 Sensor device APPLY AND USE DIRECTED 06/04 completed Not Available Not Available Not Available Vitals Date Recorded Body height Body mass index (BMI) Body weight Body temperature Oxygen saturation Oxygen saturation in Arterial blood by Pulse oximetry Heart rate Systolic blood pressure Diastolic blood pressure Provider Name and Address Organization Details Last Updated DateTime 5 167.64 cm 21.5 kg/m2 04939.7 9 g 97.2 [degF] 97 % 97 % 63 /min 126 mm[Hg] 84 mm[Hg] [facility] 5 14:28:53 Social History Question Answer Notes LastModified by [employer] Details LastModified Time Tobacco Smoking Status Former Smoker quit 15 yrs ago [facility]2023 15:07:15 What Was The Date Of Your Most Recent Tobacco Screening? 07/23/2024 elie Information not available 07/23/2024 Sex: Female Functional Status Question Answer Note LastModified by [employer] Details LastModified Time What is your level of alcohol consumption? Occasional [email or web address] Information not available 05/20/2023 Mental Status None recorded. Family History Nothing Reported. Medical History Condition Response Coronary Artery Disease N Gout N Kidney Stones N Blood Transfusion N Head Trauma/Injury N Hernia N Emphysema N Colon/Rectal Disorders N Sexually Transmitted Disease N Glaucoma N Lung Disease N Depression N COPD N Pneumonia N Pacemaker N Measles N Varicose Veins N Attempted Suicide N Anxiety Disorder N Muscle, Joint, or Bone Problems N Arthritis N Hearing Loss N Serious Illness or Injuries N Blood Clot N Cancer N Stroke N Leg or Foot Ulcers N Radiation Therapy N Blood Thinners N High Cholesterol N Neurologic Disorder N Liver Disease N Organ Transplant N Rheumatoid Arthritis N Headaches Y Fibromyalgia N Endocrine Disorder N Kidney Disease N Allergies/Hayfever Y Heart Problems N Carpel Tunnel N Skin Problems N Anemia N Meningitis N Heart Attack ([place]) N Ulcers N Diabetes N Rheumatic Fever N Bleeding Disorder N Seizures/Epilepsy N Tuberculosis N AIDS/HIV N Asthma N Epilepsy/Seizures N Peripheral Vascular Disease N Basal Cell Carcinoma Y Reflux/GERD N Sleep Apnea N Thyroid Disorder N Hepatitis N Neuropathy N Heart Disease N Pulmonary Embolism N Hypertension N Osteoporosis N Gynecological HistoryNo gynecological history recorded. Obstetrics History GPAL:G 0 P 0 0 0 0 Past Encounters Encounter ID Performer Location Encounter Start Date Encounter Closed Date Diagnosis/Indication Diagnosis SNOMED-CT Code Diagnosis ICD10 Code Diagnosis Note [id number] LISS DICKERSON, PT, DPT PHYSICAL THERAPY / HAND THERAPY [facility] [place] [address] 06/25/2024 10:46:30 06/30/2024 05:07:21 Scapulalgia 82239526 M25.511 Cervical radiculopathy 31677930 M54.12 Abnormal posture 6765014 2 R29.3 Muscular incoordination 61098329 R27.8 [id number] LISS DICKERSON PT, [facility] [address] [place] [address] 06/29/2024 12:51:54 07/02/2024 04:32:05 Cervical radiculopathy 19068936 M54.12 Scapulalgia 77411185 M25 .511 Abnormal posture 4996122 2 R29.3 Muscular incoordination 77642685 R27.8 [id number] LISS DICKERSON, PT, DPT PHYSICAL THERAPY / HAND THERAPY [facility] [address] [place] [address] 07/08/2024 12:54:11 07/09/2024 06:23:04 Cervical radiculopathy 63525421 M54.12 Abnormal posture 6828027 2 R29.3 Scapulalgia 09707386 M25 .511 Muscular incoordination 87776777 R27.8 [id number] LISS DICKERSON, PT, DPT PHYSICAL THERAPY / HAND THERAPY [facility] [address] [place] [address] 07/15/2024 12:50:03 07/25/2024 06:38:00 Cervical radiculopathy 32438024 M54.12 Abnormal posture 8037286 2 R29.3 Scapulalgia 99875572 M25 .511 Muscular incoordination 95474181 R27.8 [id number] LISS DICKERSON, PT, DPT PHYSICAL THERAPY / HAND THERAPY [facility] [address] [place] [address] 07/23/2024 12:49:06 07/28/2024 04:10:24 Cervical radiculopathy 82861638 M54.12 Abnormal posture 4447370 2 R29.3 Scapulalgia 50141447 M25 .511 Muscular incoordination 71121767 R27.8 [id number] GIORGI CORRAL MD PAIN MEDICINE [address] [place] [address] 07/23/2024 14:02:43 07/24/2024 10:02:32 Degeneration of cervical intervertebral disc 62344562 M50.30 Cervical spondylosis 387 670610 M47.812 Scapulalgia 84499281 M25 .519 Myofascial pain syndrome of neck 244412098 M54.2 Health Concerns Section Related Observation LastModified by Organization Detai ls LastModified Time None Recorded Concern Status LastModified by Organization Details LastModified Time None Recorded Payers Encounter Date Sequence Insurance Name Policy Number Policy Jung Covered Member ID Jung Member ID Guarantor Name 07/23/2024 1 [place] [id number] Bentley Phipps [id number] Valeri Phipps Notes Date Note Type Note Provider Name and Address Organization Details Recorded Time 07/23/2024 text/html Time in: 1:00pmTime out: 1:50pm Patient reports proximately 24-hour relief following last dry needling session. She completed head turns and nods as instructed by Svetlana Riggins to PT when her drive home. Patient continues to be frustrated as she feels that she is not making appropriate success, patient reports that she completed a back and biceps workout earlier this week in which she completed bent fly, bent row, rear delt fly, OVH lat pull -- she had increased pain and GUTIERREZ that following evening.Though, patient reports last evening was the best nights rest she had in a long period of time without having to wake from pain. She states upon waking at 5-6am she felt she needed to take Aleve. LISS DICKERSON, PT, DPT [facility] [place], [address], [facility] 07/27/2024 09:55:19 07/23/2024 text/html Pain Management C-spine GISHReported bypatient.Location :neck pain trapezius area right Quality:sharp Severity:current pain level 6/10; worst pain 10/10;worsening;in terference with sleep;interference with work Duration:constant Onset/Timing:chron ic; 5 years Context:cannot identify Alleviating Factors:stretching ; relieved by changing position Aggravating Factors:looking down; looking up; turning to the right; movement/positioni ng Associated Symptoms:no weakness; no numbness; no bladder compromise; no bowel compromise Radiation Right:none Radiation Left:none ADL (Activities of Daily Living):does not improve with medication Prior Imaging:CT scan (04/15/24 ); MRI (04/15/24 ) Prior EMG:none Previous Surgerydate: (2018 C6-7 ACDF with [facility].) Previous Injections:BLANCA ( [facility] 5 injections-helped for 5wks.); RFTA (ablation 2017- [facility]- not not help); did not help Previous PT:date completed: 2018; aggravated symptoms; Currently going to PT,last visit 07/23/24 Physician directed home exercise plan (HEP)Date completed: 06/01/24 Previous rn critical care:did not help (4months ago Dr Fuller) GIORGI CORRAL MD [address] [place] [address], [address], [facility] 07/23/2024 14:45:19 OBGyn Episode No OBEpisode recorded.
--- OUTSIDE RECORDS SUMMARY | 2024-09-21 10:51 | XMS_ITS | Continuity of Care Document ---
Author Organization [facility] PH[facility]ICAL THERAPY / [facility]ERAPY [facility] Address [address] [place] [address] Care Team Providers Care Real Estate Analyst Name Role Phone MARIKA WALSH Primary Care Provider [phone] JOSSY OSHEA Switch Technician Assessment Encounter Date Assessment Date Assessment LastModified by Organization Details LastModified Time 09/01/2024 09/01/2024 Moderate symptomatic trigger points noted through suboccipitals, about the mastoid process and base of sternocleidomasto id, through splenius capitis, and into temporalis. Ischemic release completed into the aforementioned musculature with improvement in intensity of headache following. Discussed with patient change in home exercise program and progression towards increased resistance and continued strengthening in the sagittal and transverse plane of motion. Patient was able to demonstrate all exercises well with mild fatigue noted at each given repetition/end of repetition range. Plan for patient to follow-up with PT in 2 weeks secondary to scheduling conflicts and upcoming procedure next week. [email or web address] Not available 09/08/2024 21:56:16 Plan of Treatment Reminders Order Date Submit [...] and Address Organization Details Recorded Time Scapulalgia 51437352 Active 2024 LISS DICKERSON, PT, DPT [address] [place], [address] , [facility] 19:28:03 Cervical radiculopathy 48960369 Active 2024 LISS DICKERSON PT, DPT [address] [place], [address] , [facility] 19:28:05 Abnormal posture 31083050 Active 2024 LISS DICKERSON PT, DPT [address] [place], [address] , [facility] 19:28:07 Muscular incoordination 99281256 Active 2024 LISS DICKERSON PT, DPT [address] [place], [address] , [facility] 19:28:08 Problem Notes None recorded. Procedures Surgical History Date Name Laterality Status Provider Name and Address Organization Details Recorded Time 09/02/19 25 PT Manual Therapy completed LISS DICKERSON PT, DPT [address] [place], [address], [facility] 09/08/2024 21:53:03 08/26/19 25 PT/OT Neuromuscular Re-Education completed LISS DICKERSON PT, DPT [address] [place], [address], [facility] 08/25/2024 19:19:04 08/26/19 25 PT Manual Therapy completed LISS DICKERSON PT, DPT [address] [place], [address], [facility] 08/25/2024 19:19:00 08/20/19 25 PT/OT Neuromuscular Re-Education completed LISS DICKERSON, PT, DPT [address] [place], [address], [facility] 08/19/2024 12:17:57 08/20/19 25 PT Manual Therapy completed LISS DICKERSON, PT, DPT [address] [place], [address], [facility] 08/19/2024 12:17:57 08/13/19 25 PT/OT Neuromuscular Re-Education completed LISS DICKERSON, PT, DPT [address] [place], [address], [facility] 08/21/2024 12:32:25 08/13/19 25 PT Therapeutic Exercise completed LISS DICKERSON, PT, DPT [address] [place], [address], [facility] 08/21/2024 12:32:34 08/12/19 25 Cervical MBB 2 level - Theresa completed GIORGI CORRAL MD [address] [place], [address], [facility] 08/11/2024 14:52:52 07/28/19 25 PT/OT Neuromuscular Re-Education completed LISS DICKERSON, PT, DPT [address] [place], [address], [facility] 07/27/2024 12:17:47 07/28/19 25 PT Manual Therapy completed LISS DICKERSON, PT, DPT [address] [place], [address], [facility] 07/27/2024 12:18:12 07/24/19 25 Self Skilled Nursing Management - PT completed LISS DICKERSON, PT, DPT [address] [place], [address], [facility] 07/27/2024 09:48:20 07/24/19 25 PT/OT Neuromuscular Re-Education completed LISS DICKERSON, PT, DPT [address] [place], [address], [facility] 07/27/2024 09:51:11 07/24/19 25 PT Therapeutic Exercise completed LISS DICKERSON, PT, DPT [address] [place], [address], [facility] 07/27/2024 09:51:10 07/16/19 25 PT/OT Neuromuscular Re-Education completed LISS DICKERSON, PT, DPT [address] [place], [address], [facility] 07/24/2024 11:57:59 07/16/19 25 PT Manual Therapy completed LISS DICKERSON, PT, DPT [address] [place], [address], [facility] 07/24/2024 11:57:39 07/16/19 25 PT Therapeutic Exercise completed LISS DICKERSON, PT, DPT [address] [place], [address], [facility] 07/24/2024 11:57:49 07/08/19 25 PT/OT Neuromuscular Re-Education completed LISS DICKERSON, PT, DPT [address] [place], [address], [facility] 07/08/2024 21:10:29 07/08/19 25 PT Manual Therapy completed LISS DICKERSON, PT, DPT [address] [place], [address], [facility] 07/08/2024 21:10:24 07/08/19 25 PT Therapeutic Exercise completed LISS DICKERSON, PT, DPT [address] [place], [address], [facility] 07/08/2024 21:00:47 06/29/19 25 PT/OT Neuromuscular Re-Education completed LISS DICKERSON, PT, DPT [address] [place], [address], [facility] 07/01/2024 20:27:28 06/29/19 25 PT Manual Therapy completed LISS DICKERSON, PT, DPT [address] [place], [address], [facility] 07/01/2024 20:27:22 06/29/19 25 PT Therapeutic Exercise completed LISS DICKERSON, PT, DPT [address] [place], [address], [facility] 07/01/2024 20:27:36 06/25/19 25 PT Evaluation - Moderate Complexity completed LISS DICKERSON, PT, DPT [address] [place], [address], [facility] 06/25/2024 19:23:06 06/25/19 25 Self Skilled Nursing Management - PT completed LISS DICKERSON, PT, DPT [address] [place], [address], [facility] 06/25/2024 19:26:55 06/25/19 25 PT/OT Neuromuscular Re-Education completed LISS DICKERSON, PT, DPT [address] [place], [address], [facility] 06/25/2024 19:23:45 06/25/19 25 PT Therapeutic Exercise completed LISS DICKERSON, PT, DPT [address] [place], [address], [facility] 06/25/2024 19:24:29 06/04/19 25 Trigger Point Injections - Theresa completed GIORGI CORRAL MD [address] [place], [address], [facility] 06/04/2024 13:44:29 05/20/19 24 Destruction Premalignant Lesion(s) completed Georgia De Jesus [facility] 05/20/2023 15:13:46 Imaging Results None [...] completed Not Available Not Available Not Available FreeStyle Shilpi 3 Sensor device APPLY AND USE DIRECTED 06/04 completed Not Available Not Available Not Available Vitals None Recorded Social History Question Answer Notes LastModified by Organizat ion Details LastModified Time Tobacco Smoking Status Former Smoker quit 15 yrs ago Georgia Liza [facility] 05/20/2023 15:07:15 What Was The Date Of Your Most Recent Tobacco Screening? 07/23/2024 elie Information not available 07/23/2024 Sex: Female Functional Status Question Answer Note LastModified by Organizat ion Details LastModified Time What is your level of alcohol consumption? Occasional [email or web address] Information not available 05/20/2023 Mental Status None [...] N Anemia N Meningitis N Heart Attack ([place]) N Ulcers N Diabetes N Rheumatic Fever [...] SNOMED-CT Code Diagnosis ICD10 Code Diagnosis Note [id number] [facility]GI [facility]AL [facility] [address] [address] [facility], [address] [place] [address] 08/11/2024 14:14:42 08/11/2024 16:20:45 Cervical spondylosis 410709645 M47.812 [id number] LISS DICKERSON, PT, DPT PHYSICAL THERAPY / [facility] THERAPY [facility] [address] [address] 08/12/2024 13:52:39 08/22/2024 04:31:33 Cervical radiculopathy 62967523 M54.12 Abnormal posture 5344197 2 R29.3 Scapulalgia 39009874 M25 .511 Muscular incoordination 26326268 R27.8 [id number] LISS DICKERSON, PT, DPT PHYSICAL THERAPY / HAND THERAPY [place] [address] [address] 08/19/2024 11:56:29 08/29/2024 04:04:13 Cervical radiculopathy 25026444 M54.12 Abnormal posture 0278833 2 R29.3 Scapulalgia 41986768 M25 .511 Muscular incoordination 80843625 R27.8 [id number] LISS DICKERSON, PT, DPT PHYSICAL THERAPY / HAND THERAPY [place] [address] [place] [address] 08/25/2024 13:57:14 08/26/2024 04:27:09 Cervical radiculopathy 40856452 M54.12 Abnormal posture 2588277 2 R29.3 Scapulalgia 52200951 M25 .511 Muscular incoordination 53246818 R27.8 [id number] LISS DICKERSON, PT, DPT PHYSICAL THERAPY / HAND THERAPY [place] [address] [address] 09/01/2024 10:57:25 09/09/2024 04:42:11 Muscular incoordination 61687031 R27.8 Scapulalgia 58408794 M25 .511 Abnormal posture 2793463 2 R29.3 Cervical radiculopathy 82686941 M54.12 Health Concerns Section Related Observation LastModified by Organization Detai ls LastModified Time None Recorded Concern Status LastModified by Organization Details LastModified Time None Recorded Payers Encounter Date Sequence Insurance Name Policy Number Policy Jung Covered Member ID Jung Member ID Guarantor Name 09/01/2024 1 [id number] Bentley Phipps [id number] Valeri Phipps Notes Date Note Type Note Provider Name and Address Organization Details Recorded Time 09/01/2024 text/html Time in: 11:08 AMTime out: 12:10 PM Patient reports progressive return of previous symptoms at the same intensity as previous headache and muscular restriction type symptoms into cervical spine. Patient reports that she is required to take Aleve for at least the last 3 days and is woken significantly early from sleep secondary to headache and pain. Patient reports good success with exercises without increase in headache following, and sensation of mild fatigue at the end of resistive type exercises as prescribed last session. LISS DICKERSON, PT, DPT [address] [place], [address], [facility] 09/08/2024 21:56:25 OBGyn Episode No OBEpisode recorded.
--- OUTSIDE RECORDS SUMMARY | 2024-09-21 10:51 | XMS_ITS | Continuity of Care Document ---
Author Organization [facility], [facility] Address [address] [facility] [address] [place] [address] Care Team Providers Care Biofuels Technology Manager Name Role Phone MARIKA WALSH Primary Care Provider JOSSY OSHEA Gaming Worker Assessment No assessment recorded. Plan of Treatment Reminders Order Date Submit [...] and Address Organization Details Recorded Time Scapulalgia 93826811 Active 2024 LISS DICKERSON, PT, DPT [facility] [place], [address] , [facility] 19:28:03 Cervical radiculopathy 87129790 Active 2024 LISS DICKERSON, PT, DPT [address] [place], [address] , [facility] 19:28:05 Abnormal posture 92514302 Active 2024 LISS DICKERSON, PT, DPT [address] [place], [address] , [facility] 19:28:07 Muscular incoordination 74482220 Active 2024 LISS DICKERSON, PT, DPT [address] [place], [address] , [facility] 19:28:08 Problem Notes None recorded. Procedures Surgical History Date Name Laterality Status Provider Name and Address Organization Details Recorded Time 09/02/19 25 PT Manual Therapy completed LISS DICKERSON, PT, DPT [address] [place], [address], [facility] 09/08/2024 21:53:03 08/26/19 25 PT/OT Neuromuscular Re-Education completed LISS DICKERSON, PT, DPT [address] [place], [address], [facility] 08/25/2024 19:19:04 08/26/19 25 PT Manual Therapy completed LISS DICKERSON, PT, DPT [address] [place], [address], [facility] 08/25/2024 19:19:00 08/20/19 25 PT/OT Neuromuscular Re-Education completed LISS DICKERSON, PT, DPT [address] [place], [address], [facility] 08/19/2024 12:17:57 08/20/19 25 PT Manual Therapy completed LISS DICKERSON, PT, DPT [address] [place], [address], [facility] 08/19/2024 12:17:57 08/13/19 25 PT/OT Neuromuscular Re-Education completed LISS DICKERSON, PT, DPT [address] [place], [address], [facility] 08/21/2024 12:32:25 08/13/19 25 PT Therapeutic Exercise completed LISS DICKERSON, PT, DPT [address] [place], [address], [facility] 08/21/2024 12:32:34 08/12/19 25 Cervical MBB 2 level - Theresa completed GIORGI CORRAL MD [address] [place], [address], [facility] 08/11/2024 14:52:52 07/28/19 25 PT/OT Neuromuscular Re-Education completed LISS DICKERSON, PT, DPT [address] [place], [address], [facility] 07/27/2024 12:17:47 07/28/19 25 PT Manual Therapy completed LISS DICKERSON PT, DPT [address] [place], [address], [facility] 07/27/2024 12:18:12 07/24/19 25 Self Fdc Management - PT completed LISS DICKERSON, PT, DPT [address] [place], [address], [facility] 07/27/2024 09:48:20 07/24/19 25 PT/OT Neuromuscular Re-Education completed LISS DICKERSON, PT, DPT [address] [place], [address], [facility] 07/27/2024 09:51:11 07/24/19 25 PT Therapeutic Exercise completed LISS DICKERSON, PT, DPT [address] [place], [address], [facility] 07/27/2024 09:51:10 07/16/19 25 PT/OT Neuromuscular Re-Education completed LISS DICKERSON, PT, DPT [address] [place], [address], [facility] 07/24/2024 11:57:59 07/16/19 25 PT Manual Therapy completed LISS DICKERSON, PT, DPT [address] [place], [address], [facility] 07/24/2024 11:57:39 07/16/19 25 PT Therapeutic Exercise completed LISS DICKERSON, PT, DPT [address] [place], [address], [facility] 07/24/2024 11:57:49 07/08/19 25 PT/OT Neuromuscular Re-Education completed LISS DICKERSON, PT, DPT [address] [place], [address], [facility] 07/08/2024 21:10:29 07/08/19 25 PT Manual Therapy completed LISS DICKERSON PT, DPT [address] [place], [address], [facility] 07/08/2024 21:10:24 07/08/19 25 PT Therapeutic Exercise completed LISS DICKERSON, PT, DPT [address] [place], [address], [facility] 07/08/2024 21:00:47 06/29/19 25 PT/OT Neuromuscular Re-Education completed LISS DICKERSON, PT, DPT [address] [place], [address], [facility] 07/01/2024 20:27:28 06/29/19 25 PT Manual Therapy completed LISS DICKERSON, PT, DPT [address] [place], [address], [facility] 07/01/2024 20:27:22 06/29/19 25 PT Therapeutic Exercise completed LISS DICKERSON, PT, DPT [address] [place], [address], [facility] 07/01/2024 20:27:36 06/25/19 25 PT Evaluation - Moderate Complexity completed LISS DICKERSON, PT, DPT [address] [place], [address], [facility] 06/25/2024 19:23:06 06/25/19 25 Self Fdc Management - PT completed LISS DICKERSON, PT, DPT [address] [place], [address], [facility] 06/25/2024 19:26:55 06/25/19 25 PT/OT Neuromuscular Re-Education completed LISS DICKERSON, PT, DPT [address] [place], [address], [facility] 06/25/2024 19:23:45 06/25/19 25 PT Therapeutic Exercise completed LISS DICKERSON, PT, DPT [address] [place], [address], [facility] 06/25/2024 19:24:29 06/04/19 25 Trigger Point Injections - Theresa completed GIORGI CORRAL MD [address] [place], [address], [facility] 06/04/2024 13:44:29 05/20/19 24 Destruction Premalignant Lesion(s) completed Georgia Najeras [facility] 05/20/2023 15:13:46 Imaging Results None recorded. Procedure [...] completed Not Available Not Available Not Available Imitix Shilpi 3 Sensor device APPLY AND USE DIRECTED 06/04 completed Not Available Not Available Not Available Vitals None Recorded Social History Question Answer Notes LastModified by IT MOVES ITizat ion Details LastModified Time Tobacco Smoking Status Former Smoker quit 15 yrs ago Georgia Najeras [facility] 05/20/2023 15:07:15 What Was The Date Of Your Most Recent Tobacco Screening? 07/23/2024 [email or web address] Information not available 07/23/2024 Sex: Female Functional Status Question Answer Note LastModified by IT MOVES ITizat ion Details LastModified Time What is your level of alcohol consumption? Occasional [email or web address] Information not available 05/20/2023 Mental Status None recorded. Family History Nothing Reported. Medical History Condition Response Coronary Artery Disease N Gout N Kidney Stones N Blood Transfusion N Head Trauma/Injury N Emphysema N Hernia N Colon/Rectal Disorders N Sexually Transmitted Disease N Glaucoma N COPD N Depression N Lung Disease N Pneumonia N Pacemaker N Measles N Anxiety Disorder N Varicose Veins N Attempted Suicide N Muscle, Joint, or Bone Problems N Arthritis N Hearing Loss N Serious Illness or Injuries N Blood Clot N Cancer N Stroke N Leg or Foot Ulcers N Radiation Therapy N Blood Thinners N High Cholesterol N Neurologic Disorder N Liver Disease N Organ Transplant N Rheumatoid Arthritis N Headaches Y Fibromyalgia N Kidney Disease N Endocrine Disorder N Allergies/Hayfever Y Heart Problems N Carpel Tunnel N Skin Problems N Anemia N Meningitis N Heart Attack ([place]) N Ulcers N Diabetes N Rheumatic Fever [...] SNOMED-CT Code Diagnosis ICD10 Code Diagnosis Note [id number] LISS DICKERSON, PT, DPT PHYSICAL THERAPY / HAND [place] [address] [address] [place] [address] 07/15/2024 12:50:03 07/25/2024 06:38:00 Cervical radiculopathy 57778654 M54.12 Abnormal posture 1422802 2 R29.3 Scapulalgia 54716270 M25 .511 Muscular incoordination 15902463 R27.8 [id number] LISS DICKERSON PT, DPT PHYSICAL THERAPY / [place] [address] 07/23/2024 12:49:06 07/28/2024 04:10:24 Cervical radiculopathy 33539957 M54.12 Abnormal posture 1563981 2 R29.3 Scapulalgia 60493674 M25 .511 Muscular incoordination 99033904 R27.8 [id number] GIORGI CORRAL MD [facility] [address] [place] [address] 07/23/2024 14:02:43 07/24/2024 10:02:32 Degeneration of cervical intervertebral disc 93577011 M50.30 Cervical spondylosis 387 120583 M47.812 Scapulalgia 64899218 M25 .519 Myofascial pain syndrome of neck 985422913 M54.2 [id number] LISS DICKERSON PT, DPT PHYSICAL THERAPY / HAND [place] [address] 07/27/2024 10:53:22 07/30/2024 08:54:17 Cervical radiculopathy 50443695 M54.12 Abnormal posture 3421916 2 R29.3 Scapulalgia 14923065 M25 .511 Muscular incoordination 01035213 R27.8 [id number] GIORGI CORRAL MD [facility] [address] [facility] [address] PROFESSIO NAL CHARGES [address] [facility], [address] [place] [address] 08/11/2024 14:14:42 08/11/2024 16:20:45 Cervical spondylosis 376138850 M47.812 Health Concerns Section Related Observation LastModified by Organization Detai ls LastModified Time None Recorded Concern Status LastModified by Organization Details LastModified Time None Recorded Payers Encounter Date Sequence Insurance Name Policy Number Policy Jung Covered Member ID Jung Member ID Guarantor Name 08/11/2024 1 [place] [id number] Bentley Phipps [id number] Valeri Desire OBGyn Episode No OBEpisode recorded.
--- OUTSIDE RECORDS SUMMARY | 2024-09-21 10:52 | XMS_ITS | Continuity of Care Document ---
Author Organization [facility], [facility] Address [address] [place] [address] Care Team Providers Care Sizer Hand Name Role Phone MARIKA WALSH Primary Care Provider [phone] JOSSY OSHEA Returned Telephone Equipment Appraiser Assessment No assessment recorded. Plan of Treatment [...] and Address Organization Details Recorded Time Scapulalgia 06397527 Active 2024 LISS DICKERSON, PT, DPT [facility] [place], [address] , [facility] 19:28:03 Cervical radiculopathy 14809902 Active 2024 LISS DICKERSON, PT, DPT [address] [place], [address] , [facility] 19:28:05 Abnormal posture 34218866 Active 2024 LISS DICKERSON, PT, DPT [address] [place], [address] , [facility] 19:28:07 Muscular incoordination 22563704 Active 2024 LISS DICKERSON, PT, DPT [address] [place], [address] , [facility] 19:28:08 Problem Notes None recorded. Procedures Surgical History Date Name Laterality Status Provider Name and Address Organization Details Recorded Time 09/02/19 25 PT Manual Therapy completed LISS DICKERSON, PT, DPT [address] [place], [address], [facility] 09/08/2024 21:53:03 08/26/19 25 PT/OT Neuromuscular Re-Education completed LISS DICKERSON, PT, DPT [address] [place], [address], [facility] 08/25/2024 19:19:04 08/26/19 25 PT Manual Therapy completed LISS DICKERSON, PT, DPT [address] [place], [address], [facility] 08/25/2024 19:19:00 08/20/19 25 PT/OT Neuromuscular Re-Education completed LISS DICKERSON, PT, DPT [address] [place], [address], [facility] 08/19/2024 12:17:57 08/20/19 25 PT Manual Therapy completed LISS DICKERSON, PT, DPT [address] [place], [address], [facility] 08/19/2024 12:17:57 08/13/19 25 PT/OT Neuromuscular Re-Education completed LISS DICKERSON, PT, DPT [address] [place], [address], [facility] 08/21/2024 12:32:25 08/13/19 25 PT Therapeutic Exercise completed LISS DICKERSON, PT, DPT [address] [place], [address], [facility] 08/21/2024 12:32:34 08/12/19 25 Cervical MBB 2 level - Theresa completed GIORGI CORRAL MD [address] [place], [address], [facility] 08/11/2024 14:52:52 07/28/19 25 PT/OT Neuromuscular Re-Education completed ILSS DICKERSON, PT, DPT [address] [place], [address], [facility] 07/27/2024 12:17:47 07/28/19 25 PT Manual Therapy completed LISS DICKERSON PT, DPT [address] [place], [address], [facility] 07/27/2024 12:18:12 07/24/19 25 Self Group Home Management - PT completed LISS DICKERSON, PT, DPT [address] [place], [address], [facility] 07/27/2024 09:48:20 07/24/19 25 PT/OT Neuromuscular Re-Education completed LISS DICKERSON, PT, DPT [address] [place], [address], [facility] 07/27/2024 09:51:11 07/24/19 25 PT Therapeutic Exercise completed LISS DICKERSON, PT, DPT [address] [place], [address], [facility] 07/27/2024 09:51:10 07/16/19 25 PT/OT Neuromuscular Re-Education completed LISS DICKERSON, PT, DPT [address] [place], [address], [facility] 07/24/2024 11:57:59 07/16/19 25 PT Manual Therapy completed LISS DICKERSON, PT, DPT [address] [place], [address], [facility] 07/24/2024 11:57:39 07/16/19 25 PT Therapeutic Exercise completed LISS DICKERSON, PT, DPT [address] [place], [address], [facility] 07/24/2024 11:57:49 07/08/19 25 PT/OT Neuromuscular Re-Education completed LISS DICKERSON, PT, DPT [address] [place], [address], [facility] 07/08/2024 21:10:29 07/08/19 25 PT Manual Therapy completed LISS DICKERSON PT, DPT [address] [place], [address], [facility] 07/08/2024 21:10:24 07/08/19 25 PT Therapeutic Exercise completed LISS DICKERSON, PT, DPT [address] [place], [address], [facility] 07/08/2024 21:00:47 06/29/19 25 PT/OT Neuromuscular Re-Education completed LISS DICKERSON, PT, DPT [address] [place], [address], [facility] 07/01/2024 20:27:28 06/29/19 25 PT Manual Therapy completed LISS DICKERSON, PT, DPT [address] [place], [address], [facility] 07/01/2024 20:27:22 06/29/19 25 PT Therapeutic Exercise completed LISS DICKERSON, PT, DPT [address] [place] [place], [address], [facility] 07/01/2024 20:27:36 06/25/19 25 PT Evaluation - Moderate Complexity completed LISS DICKERSON, PT, DPT [address] [place], [address], [facility] 06/25/2024 19:23:06 06/25/19 25 Self Group Home Management - PT completed LISS DICKERSON, PT, DPT [address] [place], [address], [facility] 06/25/2024 19:26:55 06/25/19 25 PT/OT Neuromuscular Re-Education completed LISS DICKERSON, PT, DPT [address] [place], [address], [facility] 06/25/2024 19:23:45 06/25/19 25 PT Therapeutic Exercise completed LISS DICKERSON, PT, DPT [address] [place], [address], [facility] 06/25/2024 19:24:29 06/04/19 25 Trigger Point Injections - Theresa completed GIORGI CORRAL MD [address] [place], [address], [facility] 06/04/2024 13:44:29 05/20/19 24 Destruction Premalignant Lesion(s) completed [place] [facility] 05/20/2023 15:13:46 Imaging Results None recorded. Procedure [...] completed Not Available Not Available Not Available [employer] Shilpi 3 Sensor device APPLY AND USE DIRECTED 06/04 completed Not Available Not Available Not Available Vitals None Recorded Social History Question Answer Notes LastModified by RealPageizat ion Details LastModified Time Tobacco Smoking Status Former Smoker quit 15 yrs ago [place] Najeras [facility] 05/20/2023 15:07:15 What Was The Date Of Your Most Recent Tobacco Screening? 07/23/2024 [email or web address] Information not available 07/23/2024 Sex: Female Functional Status Question Answer Note LastModified by RealPageiz[employer] ion Details LastModified Time What is your [...] Pacemaker N Measles N Attempted Suicide N Anxiety Disorder N Varicose Veins N Muscle, Joint, or Bone Problems N [...] Skin Problems N Anemia N Meningitis N Ulcers N Heart Attack ([place]) N Diabetes N Rheumatic Fever N Bleeding [...] SNOMED-CT Code Diagnosis ICD10 Code Diagnosis Note [id number] GIORGI CORRAL MD [facility] PROFJACKYIO NAL CHARGES [address] [place] [address] 08/11/2024 14:14:42 08/11/2024 16:20:45 Cervical spondylosis 425571925 M47.812 [id number] LISS DICKERSON, PT, DPT [facility] / [facility]APY [facility] [address] [place] [address] 08/12/2024 13:52:39 08/22/2024 04:31:33 Cervical radiculopathy 98792318 M54.12 Abnormal posture 3929011 2 R29.3 Scapulalgia 71222921 M25 .511 Muscular incoordination 03226094 R27.8 [id number] LISS DICKERSON PT, DPT PHYSICAL THERAPY / HAND THERAPY [facility] [address] [facility] [place] [address] 08/19/2024 11:56:29 08/29/2024 04:04:13 Cervical radiculopathy 59678489 M54.12 Abnormal posture 8455548 2 R29.3 Scapulalgia 88593493 M25 .511 Muscular incoordination 87750841 R27.8 [id number] LISS DICKERSON, PT, DPT PHYSICAL THERAPY / HAND THERAPY [facility] [address] [place] [address] 08/25/2024 13:57:14 08/26/2024 04:27:09 Cervical radiculopathy 51651597 M54.12 Abnormal posture 6038378 2 R29.3 Scapulalgia 48686802 M25 .511 Muscular incoordination 06511825 R27.8 [id number] LISS DICKERSON, PT, DPT PHYSICAL THERAPY / HAND THERAPY [facility] [address] [address] 09/01/2024 10:57:25 09/09/2024 04:42:11 Muscular incoordination 20631626 R27.8 Scapulalgia 17847169 M25 .511 Abnormal posture 6882536 2 R29.3 Cervical radiculopathy 31921059 M54.12 [id number] GIORGI CORRAL MD [facility] PROFESSIO NAL CHARGES [address] [place] [address] 09/08/2024 12:18:22 09/08/2024 16:10:29 Cervical spondylosis 607601678 M47.812 Health Concerns Section Related Observation LastModified by Organization Detai ls LastModified Time None Recorded Concern Status LastModified by Organization Details LastModified Time None Recorded Payers Encounter Date Sequence Insurance Name Policy Number Policy Jung Covered Member ID Jung Member ID Guarantor Name 09/08/2024 1 BC[place]: [place] [id number] Bentley Phipps [id number] Valeri Desire OBGyn Episode No OBEpisode recorded.
--- OUTSIDE RECORDS SUMMARY | 2024-09-21 10:52 | XMS_ITS | Continuity of Care Document ---
Author Organization [facility], [facility] Address [address] [place] [address] Care Team Providers Care Lecturer In Marketing Name Role Phone NICO MARIKA Primary Care Provider JOSSY OSHEA Floorworker Distributor Assessment Encounter Date Assessment Date Assessment LastModified by Organization Details LastModified Time 08/19/2024 08/19/2024 Patient was able to progress with her muscular control exercises as well as facilitation with minimal resistance. Patient requires minimal to moderate verbal and tactile cueing for appropriate upper trap facilitation and recruitment through both upper trap and rhomboid as to allow appropriate scapular kinematics. Updated patient's home exercises, discussed with patient importance of continued facilitation of appropriate resting posture as well as active motion through upper trap as to decrease extent of compensatory strategies which are leading to patient's symptoms of headaches. Will follow-up with her in 1 week for continued progressions of parascapular recruitment and strength. [email or web address] Not available 08/28/2024 10:46:09 Plan of Treatment Reminders Order Date Submit [...] and Address Organization Details Recorded Time Scapulalgia 74815212 Active 2024 LISS DICKERSON, PT, DPT [address] [place], [address] , [facility] 19:28:03 Cervical radiculopathy 95260098 Active 2024 LISS DICKERSON PT, DPT [address] [place], [address] , [facility] 19:28:05 Abnormal posture 15344232 Active 2024 LISS DICKERSON PT, DPT [address] [place], [address] , [facility] 19:28:07 Muscular incoordination 48123186 Active 2024 LISS DICKERSON PT, DPT [address] [place], [address] , [facility] 19:28:08 Problem Notes None recorded. Procedures Surgical History Date Name Laterality Status Provider Name and Address Organization Details Recorded Time 09/02/19 25 PT Manual Therapy completed LISS DICKERSON PT, DPT [address] [place], [address], [facility] 09/08/2024 21:53:03 08/26/19 25 PT/OT Neuromuscular Re-Education completed LISS DICKERSON PT, DPT [address] [place], [address], [facility] 08/25/2024 19:19:04 08/26/19 25 PT Manual Therapy completed LISS DICKERSON PT, DPT [address] [place], [address], [facility] 08/25/2024 19:19:00 08/20/19 25 PT/OT Neuromuscular Re-Education completed LISS DICKERSON, PT, DPT [address] [place], [address], [facility] 08/19/2024 12:17:57 08/20/19 25 PT Manual Therapy completed LISS DICKERSON, PT, DPT [address] [place], [address], [facility] 08/19/2024 12:17:57 08/13/19 25 PT/OT Neuromuscular Re-Education completed LISS DICKERSON, PT, DPT [address] [place], [address], [facility] 08/21/2024 12:32:25 08/13/19 25 PT Therapeutic Exercise completed LISS DICKERSON, PT, DPT [address] [place], [address], [facility] 08/21/2024 12:32:34 08/12/19 25 Cervical MBB 2 level - Tehresa completed GIORGI CORRAL MD [address] [place], [address], [facility] 08/11/2024 14:52:52 07/28/19 25 PT/OT Neuromuscular Re-Education completed LISS DICKERSON, PT, DPT [address] [place], [address], [facility] 07/27/2024 12:17:47 07/28/19 25 PT Manual Therapy completed LISS DICKERSON, PT, DPT [address] [place], [address], [facility] 07/27/2024 12:18:12 07/24/19 25 Self Group Home Management - PT completed LISS DICKERSON, PT, DPT [address] [place], [address], [facility] 07/27/2024 09:48:20 07/24/19 25 PT/OT Neuromuscular Re-Education completed LISS DICKERSON, PT, DPT [address] [place], [address], [facility] 07/27/2024 09:51:11 07/24/19 25 PT Therapeutic Exercise completed LISS DICKERSON, PT, DPT [address] [place], [address], [facility] 07/27/2024 09:51:10 07/16/19 25 PT/OT Neuromuscular Re-Education completed LISS DICKERSON, PT, DPT [address] [place], [address], [facility] 07/24/2024 11:57:59 07/16/19 25 PT Manual Therapy completed LISS DICKERSON, PT, DPT [address] [place], [address], [facility] 07/24/2024 11:57:39 07/16/19 25 PT Therapeutic Exercise completed LISS DICKERSON, PT, DPT [address] [place], [address], [facility] 07/24/2024 11:57:49 07/08/19 25 PT/OT Neuromuscular Re-Education completed LISS DICKERSON, PT, DPT [address] [place], [address], [facility] 07/08/2024 21:10:29 07/08/19 25 PT Manual Therapy completed LISS DICKERSON, PT, DPT [address] [place], [address], [facility] 07/08/2024 21:10:24 07/08/19 25 PT Therapeutic Exercise completed LISS DICKERSON, PT, DPT [address] [place], [address], [facility] 07/08/2024 21:00:47 06/29/19 25 PT/OT Neuromuscular Re-Education completed LISS DICKERSON, PT, DPT [address] [place], [address], [facility] 07/01/2024 20:27:28 06/29/19 25 PT Manual Therapy completed LISS DICKERSON PT, DPT [address] [place], [address], [facility] 07/01/2024 20:27:22 06/29/19 25 PT Therapeutic Exercise completed LISS DICKERSON, PT, DPT [address] [place], [address], [facility] 07/01/2024 20:27:36 06/25/19 25 PT Evaluation - Moderate Complexity completed LISS DICKERSON, PT, DPT [address] [place], [address], [facility] 06/25/2024 19:23:06 06/25/19 25 Self Group Home Management - PT completed LISS DICKERSON, PT, DPT [address] [place], [address], [facility] 06/25/2024 19:26:55 06/25/19 25 PT/OT Neuromuscular Re-Education completed LISS DICKERSON, PT, DPT [address] [place], [address], [facility] 06/25/2024 19:23:45 06/25/19 25 PT Therapeutic Exercise completed LISS DICKERSON, PT, DPT [address] [place], [address], [facility] 06/25/2024 19:24:29 06/04/19 25 Trigger Point Injections - Theresa completed GIORGI CORRAL MD [address] [place], [address], [facility] 06/04/2024 13:44:29 05/20/19 24 Destruction Premalignant Lesion(s) completed [place] De Jesus [facility] 05/20/2023 15:13:46 Imaging Results None recorded. Procedure [...] Smoker quit 15 yrs ago [place] Najeras [facility] 05/20/2023 15:07:15 What Was The Date Of Your Most Recent Tobacco Screening? 07/23/2024 [email or web address] Information not available 07/23/2024 Sex: Female Functional Status Question Answer Note LastModified by Organizat ion Details LastModified Time What is your level of alcohol consumption? Occasional [email or web address] Information not available 05/20/2023 Mental Status None recorded. Family History Nothing Reported. Medical History Condition Response Coronary Artery Disease N Gout N Kidney Stones N Blood Transfusion N Emphysema N Head Trauma/Injury N Hernia N Colon/Rectal Disorders N Sexually Transmitted Disease N COPD N Depression N Lung Disease N Glaucoma N Pneumonia N Pacemaker N [...] N Meningitis N Ulcers N Heart Attack ([place]) N Diabetes N Rheumatic Fever N Bleeding [...] SNOMED-CT Code Diagnosis ICD10 Code Diagnosis Note [id number] LISS DICKERSON, PT, DPT PHYSICAL THERAPY / HAND THERAPY [facility] [address] [address] 07/23/2024 12:49:06 07/28/2024 04:10:24 Cervical radiculopathy 53867786 M54.12 Abnormal posture 9051471 2 R29.3 Scapulalgia 61433596 M25 .511 Muscular incoordination 16593099 R27.8 [id number] GIORGI CORRAL MD [facility] [address] [place] [address] 07/23/2024 14:02:43 07/24/2024 10:02:32 Degeneration of cervical intervertebral disc 74255710 M50.30 Cervical spondylosis 387 307331 M47.812 Scapulalgia 34149397 M25 .519 Myofascial pain syndrome of neck 123843248 M54.2 [id number] LISS DICKERSON, PT, DPT PHYSICAL THERAPY / HAND THERAPY [facility] [address] [place] [address] 07/27/2024 10:53:22 07/30/2024 08:54:17 Cervical radiculopathy 20888112 M54.12 Abnormal posture 1980227 2 R29.3 Scapulalgia 62966987 M25 .511 Muscular incoordination 09768817 R27.8 [id number] GIORGI CORRAL MD [facility] [address] OF SERVICE PROFESSIO NAL CHARGES [address], [address] [place] [address] 08/11/2024 14:14:42 08/11/2024 16:20:45 Cervical spondylosis 264709755 M47.812 [id number] LISS DICKERSON, PT, DPT PHYSICAL THERAPY / HAND THERAPY [place] [address] [place] [address] 08/12/2024 13:52:39 08/22/2024 04:31:33 Cervical radiculopathy 11019033 M54.12 Abnormal posture 8488639 2 R29.3 Scapulalgia 32580171 M25 .511 Muscular incoordination 16232941 R27.8 [id number] LISS DICKERSON, PT, DPT PHYSICAL THERAPY / HAND THERAPY [place] [address] [place] [address] 08/19/2024 11:56:29 08/29/2024 04:04:13 Cervical radiculopathy 22881732 M54.12 Abnormal posture 9859076 2 R29.3 Scapulalgia 56374668 M25 .511 Muscular incoordination 76674402 R27.8 Health Concerns Section Related Observation LastModified by Organization Detai ls LastModified Time None Recorded Concern Status LastModified by Organization Details LastModified Time None Recorded Payers Encounter Date Sequence Insurance Name Policy Number Policy Jung Covered Member ID Jung Member ID Guarantor Name 08/19/2024 1 [place] [id number] Bentley Phipps [id number] Valeri Phipps Notes Date Note Type Note Provider Name and Address Organization Details Recorded Time 08/19/2024 text/html Time in: 12:09pmTime out: 1:10pm [...] to today's appointment. LISS DICKERSON, PT, DPT [address] [place], [address], [facility] 08/28/2024 10:46:20 08/25/2024 text/html Time in: 2:05 PMTime out: [...] set of exercises. LISS DICKERSON, PT, DPT [address] [place], [address], [facility] 08/25/2024 19:22:42 OBGyn Episode No OBEpisode recorded.
== END 2024-09-21 23:59 | disposition home or self-care (01) ==
LOC: RAD 10:50
PROVIDERS: PCP Family Medicine; Visit Provider Family Medicine
DX: R07.9 Chest pain, unspecified (principal)
CPT/HCPCS: 71046

== ENCOUNTER 2025-04-20 10:19 | Outpatient (CLI) | payer BC, SELFPAY ==
[2025-04-20 10:45] LABS: Blood Urea Nitrogen 11 mg/dl (7-17)
--- NOTE | 2025-04-20 10:45 | CT_ITS ---
FINAL REPORT CLINICAL HISTORY: left renal cyst COMPARISON: No prior exam submitted for comparison FINDINGS: There are bilateral subglandular breast implants present. The lung bases are clear. The liver is normal in size and attenuation. The spleen is unremarkable. The adrenals are normal. The pancreas is unremarkable. Gallbladder is present. There are benign-appearing cysts within the left kidney measuring up to 2.3 cm. There is an indeterminate, 1.2 cm nodule in the posterior right kidney with a precontrast mean attenuation value of 67 Hounsfield units, post contrast Hounsfield units of 74 and delayed Hounsfield units of 75. Findings are most consistent with complex benign cyst. No renal stones are seen. Uterus is anteverted. Appendix is normal. Urinary bladder is unremarkable. IMPRESSION: Complex, benign right renal cyst and left renal cysts as above. Reviewed, Interpreted and Dictated by Farhan Palm MD Transcribed by Svetlana Morton Authenticated and [facility]
[2025-04-20 10:52] LABS: Creatinine,Serum 1.40 mg/dl (0.52-1.04); Estimated Glomerular Filt Rate 38 ml/min (>60); GFR (African American) 46 ML/MIN (>60)
[2025-04-20] MEDS: IOPAMIDOL-370 (76%);100ML BOTTLE 75 ML IV (11:13)
[2025-04-20] MEDS: SODIUM CHLORIDE 0.9% 10ML SYR (RAD ONLY) 10 ML IV (11:13)
== END 2025-04-20 23:59 | disposition home or self-care (01) ==
LOC: RAD 10:19
PROVIDERS: PCP Family Medicine; Visit Provider Family Medicine
DX: N28.1 Cyst of kidney, acquired (principal)
CPT/HCPCS: 36415; 74178; 82565; 84520; Q9967